=== PATIENT | female | born 1945 | race Two or more races ===

== ENCOUNTER 2018-05-01 09:52 | Emergency (ER) | payer MEDICAID ==
[~2018-05-01] VITALS: Ht 149.9 cm; Wt 74.0 kg
[2018-05-01 10:16] VITALS: BP 129/38
[2018-05-01 11:25] LABS: CLARITY URINE CLEAR (CLEAR); COLOR URINE YELLOW (YELLOW); KETONES URINE TRACE (NEGATIVE); LEUKOCYTE ESTERASE URINE NEGATIVE (NEGATIVE); NITRITE URINE NEGATIVE (NEGATIVE); OCCULT BLOOD URINE NEGATIVE (NEGATIVE); PROTEIN URINE NEGATIVE (NEGATIVE); SPECIFIC GRAVITY URINE 1.024 (1.005-1.030); UROBILINOGEN URINE 0.2 E.U./dL (0.2-1.0)
== END 2018-05-01 15:00 | disposition left against medical advice (07) ==
LOC: ER 09:52
DX: Z53.21 Procedure and treatment not carried out due to patient leaving prior to being seen by health care provider (principal); I10 Essential (primary) hypertension; E11.9 Type 2 diabetes mellitus without complications
CPT/HCPCS: 99283

== ENCOUNTER 2024-01-15 16:39 | Inpatient (IN) | payer MEDICAID ==
[~2024-01-15] VITALS: Ht 152.4 cm; Wt 67.6 kg
[2024-01-15] MEDS ORDERED: HYDRALAZINE 20MG/ML VIAL IV ONE (19:00)
[2024-01-15] MEDS ORDERED: ASPIRIN 81MG TABLET PO ONE (19:00)
[2024-01-15 20:07] LABS: BASOPHILS % 0.5 % (0.0-2.0); HEMATOCRIT. 35.7 % (36.0-48.0); HEMOGLOBIN. 12.1 g/dL (12.0-16.0); LYMPHOCYTES % 34.9 % (20.0-50.0); MEAN CORPUSCULAR HEMOGLOBIN 32.4 pg (28.0-32.0); MEAN CORPUSCULAR HGB CONC 33.8 g/dL (31.0-37.0); MEAN CORPUSCULAR VOLUME 95.8 fL (81.0-99.0); MONOCYTES % 8.6 % (2.0-8.0); PLATELET 175 x1000/uL (130-400); RED BLOOD CELL COUNT 3.73 mill/uL (4.2-5.4); RED CELL DISTRIBUTION WIDTH 14.3 % (11.6-14.6); WHITE BLOOD COUNT 4.8 x1000/uL (4.5-11.0)
[2024-01-15 20:12] LABS: CHLORIDE 105 mEq/L (98-107); POTASSIUM 4.1 mEq/L (3.5-5.1); SODIUM 136 mEq/L (136-145)
[2024-01-15 20:13] LABS: CALCIUM 9.4 mg/dL (8.7-10.4); CARBON DIOXIDE 28 mEq/L (21-32)
[2024-01-15 20:18] LABS: CREATININE 0.6 mg/dL (0.6-1.0); GLUCOSE 125 mg/dL (70-105); UREA NITROGEN BLOOD 14 mg/dL (9-23)
[2024-01-15 20:19] LABS: INR 0.9; PROTHROMBIN TIME 10.3 sec (9.6-11.0); TROPONIN I HIGH SENSITIVITY 4 ng/L (3.0-34)
[2024-01-15] MEDS: HYDRALAZINE 20MG/ML VIAL IV NR (21:26)
[2024-01-15] MEDS: ASPIRIN 81MG TABLET PO NR (21:26)
[2024-01-16 04:00] VITALS: BP 190/65; PULSE 54; RESP 18; TEMP 36.78072; O2SAT 98
[2024-01-16] MEDS: AMLODIPINE 10MG TABLET PO SCH (14:10)
[2024-01-16] MEDS: FUROSEMIDE 40MG/4ML VIAL IVP SCH (14:10)
[2024-01-16 16:00] LABS: TROPONIN I HIGH SENSITIVITY < 4 ng/L (3.0-34)
[2024-01-16 17:49] VITALS: BP 156/62; PULSE 66; RESP 16; TEMP 36.83628; O2SAT 97
[2024-01-16 18:11] VITALS: BP 156/62; PULSE 60; RESP 20; TEMP 36.8628
[2024-01-16] MEDS: ONDANSETRON HCL 4MG/2ML INJ IV PRN (18:24)
[2024-01-16] MEDS ORDERED: METF-873 PO (18:39)
[2024-01-16] MEDS ORDERED: GABA-529 PO (18:39)
[2024-01-16] MEDS ORDERED: LOSA25TA26 PO (18:39)
[2024-01-16] MEDS: ACETAMINOPHEN 325MG TABLET PO PRN (18:43)
[2024-01-16 20:00] VITALS: BP 124/50; PULSE 58; RESP 18; TEMP 36.72516; O2SAT 98
[2024-01-17 00:01] VITALS: BP 99/53; PULSE 66; RESP 20; TEMP 36.9474; O2SAT 96
[2024-01-17 04:00] VITALS: BP 112/49; PULSE 50; RESP 19; TEMP 36.61404; O2SAT 98
[2024-01-17 08:00] VITALS: BP 154/55; PULSE 56; RESP 18; TEMP 36.72516; O2SAT 98
[2024-01-17 12:00] VITALS: BP 134/61; PULSE 56; RESP 18; TEMP 36.78072; O2SAT 97
[2024-01-17] MEDS: FUROSEMIDE 40MG/4ML VIAL IVP NR (13:35)
[2024-01-17 16:00] VITALS: BP 110/55; PULSE 57; RESP 18; TEMP 36.72516; O2SAT 98
[2024-01-17 16:07] LABS: CHLORIDE 102 mEq/L (98-107); POTASSIUM 4.6 mEq/L (3.5-5.1); SODIUM 134 mEq/L (136-145)
[2024-01-17 16:08] LABS: CARBON DIOXIDE 25 mEq/L (21-32)
[2024-01-17 16:13] LABS: CREATININE 0.9 mg/dL (0.6-1.0); GLUCOSE 167 mg/dL (70-105); UREA NITROGEN BLOOD 21 mg/dL (9-23)
[2024-01-17 20:00] VITALS: BP 98/48; PULSE 65; RESP 16; TEMP 36.55848; O2SAT 96
[2024-01-17] MEDS: FUROSEMIDE 40MG/4ML VIAL IVP SCH (20:46)
[2024-01-18 00:24] VITALS: BP 118/51; PULSE 59; RESP 18; TEMP 36.78072; O2SAT 97
[2024-01-18 04:27] VITALS: BP 132/44; PULSE 57; RESP 22; TEMP 36.78072; O2SAT 98
[2024-01-18 08:00] VITALS: BP 118/47; PULSE 56; RESP 22; TEMP 36.83628; O2SAT 97
[2024-01-18] MEDS ORDERED: FURO-151 MT (10:34)
[2024-01-18 11:14] VITALS: BP 132/44; PULSE 56; TEMP 98.3; O2SAT 98
[2024-01-18 12:00] VITALS: BP 133/49; PULSE 64; RESP 18; TEMP 36.78072; O2SAT 97
[2024-01-19] MEDS ORDERED: FUROSEMIDE 40MG TABLET PO SCH (09:00)
== END 2024-01-18 14:09 | disposition home or self-care (01) | DRG 194 ==
LOC: ER 16:39 → EDBEDREQ 20:57 → EDBEDREQTM 20:57 → 5WST 01-16 01:38 → 3WST 01-16 17:23
PROVIDERS: ADMIT Internal Medicine; ATTEND Internal Medicine
DX: I11.0 Hypertensive heart disease with heart failure (principal); E11.9 Type 2 diabetes mellitus without complications; I16.0 Hypertensive urgency; I50.31 Acute diastolic (congestive) heart failure; E78.00 Pure hypercholesterolemia, unspecified; Z79.899 Other long term (current) drug therapy
CPT/HCPCS: 36415; 71045; 80048; 83036; 83880; 84484; 85025; 93005; 93306; 99285; J0360; J1940; J2405